=== PATIENT | female | born 1965 | race Caucasian/White ===

== ENCOUNTER 2022-02-09 13:43 | Outpatient (CLI) | payer BC, SELFPAY | END 2022-02-09 13:44 | disposition home or self-care (01) | LOC: NFLDUCREF 02-17 12:24 | PROVIDERS: Visit Provider Physician Assistant | DX: M54.50 Low back pain, unspecified (principal) | CPT/HCPCS: 87086 ==

== ENCOUNTER 2022-03-25 09:14 | Outpatient (CLI) | payer BC, SELFPAY ==
[2022-03-25 10:34] LABS: Chloride* 106 mmol/L (96-114); Sodium* 141 mmol/L (135-149)
[2022-03-25 10:35] LABS: Potassium* 4.5 mmol/L (3.6-5.1)
[2022-03-25 10:36] LABS: Creatinine* 0.7 mg/dL (0.5-1.5); Estimated Glomerular Filt Rate 101 ml/min
[2022-03-25 10:37] LABS: Alanine Aminotransferase* 42 U/L (4-35); Alkaline Phosphatase* 80 U/L (40-150); Aspartate Amino Transferase* 32 U/L (12-35); Bilirubin Total* 0.7 mg/dL (0.1-1.5); Blood Urea Nitrogen* 16 mg/dL (7-30); Carbon Dioxide* 24 mmol/L (20-32); Glucose* 104 mg/dL (60-115); Total Protein* 7.6 g/dL (6.0-8.3); Triglycerides* 357 mg/dL (40-149)
[2022-03-25 10:38] LABS: Calcium* 9.6 mg/dL (8.4-10.6); HDL Cholesterol* 41 mg/dL (>=50)
[2022-03-25 11:02] LABS: Creatinine Urine 238.4 mg/dL
[2022-03-25 11:10] LABS: Microalbumin Creatinine Ratio 10 mg/g (0-30); Microalbumin Urine 4 mg/dL
[2022-03-26 18:56] LABS: Cholesterol* 202 mg/dL (90-199); LDL Cholesterol Calculated 90 mg/dL (<100)
== END 2022-03-25 09:15 | disposition home or self-care (01) ==
PROVIDERS: PCP Family Medicine; Visit Provider Family Medicine
DX: Z01.419 Encounter for gynecological examination (general) (routine) without abnormal findings (principal); E78.5 Hyperlipidemia, unspecified; R73.03 Prediabetes; E66.9 Obesity, unspecified
CPT/HCPCS: 80053; 80061; 82043; 82570

== ENCOUNTER 2022-04-24 12:40 | Outpatient (CLI) | payer BC, SELFPAY | END 2022-04-24 12:41 | disposition home or self-care (01) | PROVIDERS: PCP Family Medicine; Visit Provider Student in an Organized Health Care Education/Training Program | DX: N39.498 Other specified urinary incontinence (principal); N39.0 Urinary tract infection, site not specified | CPT/HCPCS: 87086; 87186 ==

== ENCOUNTER 2022-07-24 17:02 | Outpatient (CLI) | payer BC, SELFPAY | END 2022-07-24 17:03 | disposition home or self-care (01) | LOC: NFLDREF 07-28 03:37 | PROVIDERS: PCP Family Medicine; Referring Provider Family Medicine; Visit Provider Student in an Organized Health Care Education/Training Program | DX: R30.0 Dysuria (principal); N39.0 Urinary tract infection, site not specified | CPT/HCPCS: 87086; 87186 ==

== ENCOUNTER 2022-09-19 10:34 | Outpatient (CLI) | payer BC, SELFPAY ==
--- OUTSIDE RECORDS SUMMARY | 2022-09-20 09:53 | XMS_ITS | Continuity of Care Document ---
Author Name Unknown Organization [facility] Address [address] [place] [address] Phone Care Team Providers Care Cloud Engineer Name Role Phone Rg Calvo MD Unavailable Unavailable Allergies, Adverse Reactions, Alerts Substance Reaction Status Criticality amoxicillin Active No Information Procedures Procedure Date Office/Outpatient Visit,Est, Mod 2013 X-Ray Exam Of Neck Spine, 4+ Views Office/Outpatient Visit,[facility] 2013 X-Ray Exam Of Neck Spine, 4+ Views Advance Directives Directive Yes / No Effective Date File Name No Information Encounters Encounter Description Practice Location Reason(s) For Visit Diagnoses Date Provider Providers Copied on Encounter [facility], [address], [place], [place], [id number], [place] tel:[phone] [facility] No Information 5 Transfeldt Ensor. [facility], [address] [place] [address], [id number], [place]. tel:[phone] Office/Outpa tient Visit,Est, Mod Z [facility], [address], [address], [place] tel:[phone] [facility] Back Pain (chief complaint) No Information 4 Transfeldt Ensor. [facility], [address] [place] [address], [address], [id number], [place]. tel:[phone] Referring Provider: Raquel [address], [address]. tel:[phone] Office/Outpa tient Visit,New, Mod Z [facility], [address] [place], [place] [address] [address], [place], [address], [place] tel:[phone] [facility] [place] Transfeldt Ensor. [facility], [address] [place] [address], [address], [place], [place], [id number], [place]. tel:[phone] Referring Provider: Raquel [address], [address]. tel:[phone] Family History Family Member Type Diagnosis Age At Onset Problem (finding) Problem (finding) Problem (finding) Problem (finding) Problem (finding) Payers Payer name Insurance type Covered libertarian ID Authoriza tion(s) No Information Social History Type Description Quantity Date Captured Comments Sex Female Smoking Status No Information Chief Complaint And Reason For Visit No Information Reason For Referral Reason For Referral No Information Plan Of Treatment Date Type Action Status No Information History Of Present Illness Encounter Date Complaint History Of Prese nt Illness Back Pain Functional Status Date Functional Assessmen t No Information Instructions Date Instruction Additional Infor mation No Information Assessments Type Assessment Date No Information Patient Care Teams Name Effective Dates (start - stop) Status Members No Information
== END 2022-09-19 10:35 | disposition home or self-care (01) ==
LOC: NFLDREF 09-20 09:51
PROVIDERS: PCP Family Medicine; Referring Provider Family Medicine; Visit Provider Obstetrics & Gynecology
DX: N39.0 Urinary tract infection, site not specified (principal)
CPT/HCPCS: 87086

== ENCOUNTER 2023-02-25 10:05 | Outpatient (CLI) | payer BC, SELFPAY ==
--- OUTSIDE RECORDS SUMMARY | 2023-02-26 09:32 | XMS_ITS | Continuity of Care Document ---
Author Name Unknown Organization [facility] Address [address] [place] [address] Phone Care Team Providers Care Waterworks Chief Engineer Name Role Phone Rg Calvo MD Unavailable Unavailable Allergies, Adverse Reactions, Alerts Substance Reaction Status Criticality amoxicillin Active No Information Procedures Procedure Date Office/Outpatient Visit,Est, Mod 2013 X-Ray Exam Of Neck Spine, 4+ Views Office/Outpatient Visit,[facility] 2013 X-Ray Exam Of Neck Spine, 4+ Views Advance Directives Directive Yes / No Effective Date File Name No Information Encounters Encounter Description Practice Location Reason(s) For Visit Diagnoses Date Provider Providers Copied on Encounter [facility], [address], [place], [place], [id number], [place] tel:[phone] [facility] No Information 5 Transfeldt Ensor. [facility] [place], [address] [place] [address], [id number], [place]. tel:[phone] Office/Outpa tient Visit,Est, Mod Z [facility] [place], [address], [address], [place] tel:[phone] [facility] Back [facility] (chief complaint) No Information 4 Transfeldt Ensor. [facility] [place], [address] [place] [address], [address], [id number], [place]. tel:[phone] Referring Provider: Raquel [address], [address]. tel:[phone] Office/Outpa tient Visit,New, Mod Z [facility], [address] [place], [place] [address], [place], [address], [place] tel:[phone] [facility] [place] Transfeldt Ensor. [facility], [address] [place] [address], [address], [place], [place], [id number], [place]. tel:[phone] Referring Provider: Raquel [address], [address]. tel:[phone] Family History Family Member Type Diagnosis Age At Onset Problem (finding) Problem (finding) Problem (finding) Problem (finding) Problem (finding) Payers Payer name Insurance type Covered alliance party ID Authoriza tion(s) No Information Social History [...]
== END 2023-02-25 10:06 | disposition home or self-care (01) ==
LOC: NFLDREF 02-26 09:17
PROVIDERS: PCP Family Medicine; Referring Provider Family Medicine; Visit Provider Physician Assistant
DX: R30.0 Dysuria (principal); N39.0 Urinary tract infection, site not specified
CPT/HCPCS: 87086; 87186

== ENCOUNTER 2023-02-26 08:28 | Outpatient (CLI) | payer BC, SELFPAY ==
--- NOTE | 2023-02-26 08:15 | CRLHL7_ITS ---
For Patients: As a result of the Cures Act, medical imaging exams and procedure reports are released immediately into your electronic medical record. You may view this report before your referring provider. If you have questions, please contact your health care provider. BILATERAL SCREENING MAMMOGRAM WITH COMPUTER-AIDED DETECTION AND TOMOSYNTHESIS TECHNIQUE: CC and MLO views were obtained. These mammographic images have been obtained using full-field digital technique. These mammographic images were interpreted with the benefit of computer-aided detection. Breast Tomosynthesis was used in this interpretation. COMPARISON FILM: 12/25/20, 12/30/17, 12/29/16. FINDINGS: The breasts are almost entirely fatty IMPRESSION: There is no radiographic evidence for malignancy. ASSESSMENT: BI-RADS Category 1: Negative RECOMMENDATION: Routine screening mammogram in 1 year. A lay language report of this examination will be provided to the patient. Bruce Dexter M.D. Diagnostic Radiologist [email or web address] MAXINE/frankie / be/Dictated by: Bruce Dexter MD @ 02/26/2023 12:43:00 PM (Electronically Signed)
--- OUTSIDE RECORDS SUMMARY | 2023-02-26 08:31 | XMS_ITS | Continuity of Care Document ---
Author Name Unknown Organization [facility] Address [address] [place] [address] Phone Care Team Providers Care Accountant Property Name Role Phone Rg Calvo MD Unavailable Unavailable Allergies, Adverse Reactions, Alerts Substance Reaction Status Criticality amoxicillin Active No Information Procedures Procedure Date Office/Outpatient Visit,Est, Mod 2013 X-Ray Exam Of Neck Spine, 4+ Views Office/Outpatient Visit,[facility] 2013 X-Ray Exam Of Neck Spine, 4+ Views Advance Directives Directive Yes / No Effective Date File Name No Information Encounters Encounter Description Practice Location Reason(s) For Visit Diagnoses Date Provider Providers Copied on Encounter [facility], [address], [place], [place], [id number], [place] tel:[phone] [facility] No Information 5 Transfeldt Ensor. [facility] [place], [address] [place] [address], [id number], [place]. tel:[phone] Office/Outpa tient Visit,Est, Mod Z [facility] [place], [address], [address], [place] tel:[phone] [facility] Back Pain (chief complaint) No Information 4 Transfeldt Ensor. [facility] [place], [address] [place] [address], [address], [id number], [place]. tel:[phone] Referring Provider: Raquel [address], [address]. tel:[phone] Office/Outpa tient Visit,New, Mod Z [facility], [address] [place], [place] [address], [place], [address], [place] tel:[phone] [facility] [place] Transfeldt Ensor. [facility], [address] [place] [address], [address], [place], [place], [id number], [place]. tel:[phone] Referring Provider: Raquel [address], [address]. tel:[phone] Family History Family Member Type Diagnosis Age At Onset Problem (finding) Problem (finding) Problem (finding) Problem (finding) Problem (finding) Payers Payer name Insurance type Covered libertarian ID Authoriza tion(s) No Information Social History Type Description Quantity Date Captured Comments Sex Female Smoking Status No Information Chief Complaint And Reason For Visit No Information Reason For Referral Reason For Referral No Information History Of Present Illness Encounter Date Complaint History Of Prese nt Illness Back Pain Functional Status Date Functional Assessmen t No Information Instructions Date Instruction Additional Infor mation No Information Assessments Type Assessment Date No Information Patient Care Teams Name Effective Dates (start - stop) Status Members No Information
== END 2023-02-26 08:29 | disposition home or self-care (01) ==
LOC: MAMMO 08:29
PROVIDERS: PCP Family Medicine; Visit Provider Family Medicine
DX: Z12.31 Encounter for screening mammogram for malignant neoplasm of breast (principal)
CPT/HCPCS: 77063; 77067

== ENCOUNTER 2023-06-12 08:40 | Outpatient (CLI) | payer BC, SELFPAY | END 2023-06-12 08:41 | disposition home or self-care (01) | PROVIDERS: PCP Family Medicine; Referring Provider Family Medicine; Visit Provider Family Medicine | DX: E78.5 Hyperlipidemia, unspecified (principal); R73.03 Prediabetes | CPT/HCPCS: 80053; 80061 ==

== ENCOUNTER 2023-07-30 19:02 | Outpatient (CLI) | payer BC, SELFPAY ==
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
--- OUTSIDE RECORDS SUMMARY | 2023-07-30 19:04 | XMS_ITS | Continuity of Care Document ---
Author Name Unknown Organization [facility] Address [address] [place] [address] Phone Care Team Providers Care Solvent Mixer Name Role Phone Rg Calvo MD Unavailable Unavailable Allergies, Adverse Reactions, Alerts Substance Reaction Status Criticality amoxicillin Active No Information Procedures Procedure Date Office/Outpatient Visit,Est, Mod 2013 X-Ray Exam Of Neck Spine, 4+ Views Office/Outpatient Visit,[facility] 2013 X-Ray Exam Of Neck Spine, 4+ Views Advance Directives Directive Yes / No Effective Date File Name No Information Encounters Encounter Description Practice Location Reason(s) For Visit Diagnoses Date Provider Providers Copied on Encounter [facility], [address], [place], [place], [id number], [place] tel:[phone] [facility] No Information [address] [facility] [place], [address] [place] [address], [id number], [place]. tel:[phone] Office/Outpa tient Visit,Est, Mod Z [facility] [place], [address], [address], [place] tel:[phone] [facility] (chief complaint) No Information [address] [facility] [place], [address] [place] [address], [address], [id number], [place]. tel:[phone] Referring Provider: Raquel [address], [address]. tel:[phone] Office/Outpa tient Visit,New, Mod Z [facility], [address] [place], [place] [address] [address], [place], [address], [place] tel:[phone] [facility] Transfeldt Ensor. [facility], [address] [place] [address], [address], [place], [place], [id number], [place]. tel:[phone] Referring Provider: Raquel [address], [address]. tel:[phone] Family History Family Member Type Diagnosis Age [...]
== END 2023-07-30 19:03 | disposition home or self-care (01) ==
LOC: NFLDUCREF 19:02
PROVIDERS: PCP Family Medicine; Visit Provider Nurse Practitioner Family
DX: R39.9 Unspecified symptoms and signs involving the genitourinary system (principal)
CPT/HCPCS: 87086; 87186

== ENCOUNTER 2023-11-30 13:29 | Outpatient (CLI) | payer BC, SELFPAY ==
--- OUTSIDE RECORDS SUMMARY | 2023-12-04 19:01 | XMS_ITS | Continuity of Care Document ---
Author Organization [facility] Address [address] [place] [address] Phone Care Team Providers Care Hyperbaric Technician Name Role Phone Rg Calvo MD Unavailable Unavailable Allergies, Adverse Reactions, Alerts Substance Reaction Status Criticality amoxicillin Active No Information Procedures Procedure Date Office/Outpatient Visit,Est, Mod 2013 X-Ray Exam Of Neck Spine, 4+ Views Office/Outpatient Visit,[facility] 2013 X-Ray Exam Of Neck Spine, 4+ Views Advance Directives Directive Yes / No Effective Date File Name No Information Encounters Encounter Description Practice Location Reason(s) For Visit Diagnoses Date Provider Providers Copied on Encounter [facility], [address], [place], [place], [id number], [place] tel:[phone] [facility] No Information 5 Transfeldt Ensor. [facility] [place], [address] [place] [address], [id number], [place]. tel:[phone] Office/Outpa tient Visit,Est, Mod Z [facility] [place], [address], [address], [place] tel:[phone] [facility] Back Pain (chief complaint) No Information 4 Transfeldt Ensor. [facility] [place], [address] [place] [address], [address], [id number], [place]. tel:[phone] Referring Provider: Raquel [address], [address]. tel:[phone] Office/Outpa tient Visit,New, Mod Z [facility], [address], [place], [address], [place] tel:[phone] [facility] CERVICALG[facility] 4 Transfeldt Ensor. [facility], [address] [place] [address], [address], [place], [place], [id number], [place]. tel:[phone] Referring Provider: Raquel [address], [address]. tel:[phone] Family History Family Member Type Diagnosis Age At Onset Problem (finding) Problem (finding) Problem (finding) Problem (finding) Problem (finding) Payers Payer name Insurance type Covered republican ID Authoriza tion(s) No Information Social History [...]
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
== END 2023-11-30 13:30 | disposition home or self-care (01) ==
LOC: NFLDREF 12-04 19:00
PROVIDERS: PCP Family Medicine; Referring Provider Family Medicine; Visit Provider Physician Assistant
DX: N39.0 Urinary tract infection, site not specified (principal)
CPT/HCPCS: 87086

== ENCOUNTER 2024-08-25 09:00 | Outpatient (CLI) | payer BC, SELFPAY | END 2024-08-25 09:01 | disposition home or self-care (01) | LOC: NFLDREF 08-27 04:27 | PROVIDERS: PCP Family Medicine; Referring Provider Family Medicine; Visit Provider Physician Assistant | DX: R30.0 Dysuria (principal); R35.0 Frequency of micturition | CPT/HCPCS: 87086 ==

== ENCOUNTER 2025-02-06 08:25 | Outpatient (CLI) | payer BC, SELFPAY | END 2025-02-06 08:26 | disposition home or self-care (01) | LOC: NFLDREF 02-09 06:57 | PROVIDERS: PCP Family Medicine; Referring Provider Family Medicine; Visit Provider Family Medicine | DX: E53.8 Deficiency of other specified B group vitamins (principal); Z13.9 Encounter for screening, unspecified; E78.5 Hyperlipidemia, unspecified; R74.8 Abnormal levels of other serum enzymes | CPT/HCPCS: 80053; 80061; 82607; 84443 ==